=== PATIENT | male | born 1955 | race Caucasian/White ===

== ENCOUNTER 2021-07-21 09:34 | Observation (INO) ==
[2021-07-21] MEDS ORDERED: 0.9 % Sodium Chloride 500 ML IV ONE (10:43)
[2021-07-21 11:05] LABS: Basophils % 0.4 %; Eosinophils # 0.2 K/mcL (0.0-0.6); Hematocrit 45.1 % (37.5-50.1); Hemoglobin 14.7 g/dL (12.9-16.9); Immature Granulocytes % 0.2 % (0-4); Lymphocytes # 2.2 K/mcL (0.6-4.6); Lymphocytes % 24.4 %; Mean Corpuscular HGB Conc 32.6 g/dL (31.6-35.5); Mean Corpuscular Hemoglobin 29.2 pg (28.0-33.3); Mean Corpuscular Volume 89.7 fL (83.0-100.0); Mean Platelet Volume 10.4 fL (9.4-12.4); Monocytes # 0.7 K/mcL (0.0-1.3); Monocytes % 7.2 %; Neutrophils # 5.9 K/mcL (1.6-8.9); Platelet Count 287 K/mcL (140-400); Red Blood Count 5.03 M/mcL (4.19-5.50); Red Cell Distribution Width 13.2 % (11.5-14.5); Segmented Neutrophils % 65.8 %
[2021-07-21 11:16] LABS: BUN/Creatinine Ratio 23 (6-26); Blood Urea Nitrogen 22 mg/dL (8-23); Calcium 9.2 mg/dL (8.6-10.3); Carbon Dioxide 25 mEq/L (23-29); Chloride 105 mEq/L (98-107); Glucose 123 mg/dL (70-105); Magnesium 1.8 mg/dL (1.6-2.6); Osmolality,Calculated 291 (280-300); Potassium 3.9 mEq/L (3.5-5.1); Sodium 138 mEq/L (136-145); Troponin I < 0.03 ng/mL (< 0.04); eGFR For African Americans > 60 (> 60); eGFR For Non-African Americans > 60 (> 60)
[2021-07-21 11:29] LABS: Thyroid Stimulating Hormone 4.969 mcIU/mL (0.340-5.600)
[2021-07-21] MEDS ORDERED: *HR* Enoxaparin 40 MG/0.4 ML SYRINGE SQ ONE (12:31)
[2021-07-21] MEDS: DilTIAZem 50 MG/50 ML IV.SOLN IVC SCH ×3 (12:33→20:20)
[2021-07-21] MEDS ORDERED: Perflutren Lipid Microsphere 1.3 ML in 0.9 % Sodium Chloride 8.7 ML IVP PRN (13:08)
[2021-07-21] MEDS ORDERED: Ondansetron 4 MG/2 ML VIAL IVP PRN (13:09)
[2021-07-21] MEDS ORDERED: Naloxone 0.4 MG/ML INJ IVP PRN (13:09)
[2021-07-21] MEDS ORDERED: Acetaminophen 325 MG TABLET PO PRN (13:09)
[2021-07-21] MEDS: Apixaban 5 MG TABLET PO SCH (20:20)
[2021-07-21] MEDS: Metoprolol 100 MG TABLET PO SCH (20:20)
[2021-07-22 05:27] LABS: Basophils # 0.1 K/mcL (0.0-0.2); Basophils % 0.5 %; Eosinophils # 0.2 K/mcL (0.0-0.6); Eosinophils % 1.8 %; Hematocrit 41.3 % (37.5-50.1); Hemoglobin 13.2 g/dL (12.9-16.9); Immature Granulocytes % 0.4 % (0-4); Lymphocytes # 2.9 K/mcL (0.6-4.6); Lymphocytes % 27.7 %; Mean Corpuscular Hemoglobin 29.3 pg (28.0-33.3); Mean Corpuscular Volume 91.6 fL (83.0-100.0); Mean Platelet Volume 9.9 fL (9.4-12.4); Monocytes # 0.7 K/mcL (0.0-1.3); Monocytes % 7.1 %; Neutrophils # 6.5 K/mcL (1.6-8.9); Platelet Count 226 K/mcL (140-400); Red Blood Count 4.51 M/mcL (4.19-5.50); Red Cell Distribution Width 13.5 % (11.5-14.5); Segmented Neutrophils % 62.5 %; White Blood Count 10.3 K/mcL (4.3-11.1)
[2021-07-22 05:58] LABS: BUN/Creatinine Ratio 20 (6-26); Blood Urea Nitrogen 20 mg/dL (8-23); Calcium 8.9 mg/dL (8.6-10.3); Carbon Dioxide 28 mEq/L (23-29); Chloride 104 mEq/L (98-107); Glucose 106 mg/dL (70-105); Osmolality,Calculated 293 (280-300); Sodium 140 mEq/L (136-145); eGFR For African Americans > 60 (> 60); eGFR For Non-African Americans > 60 (> 60)
[2021-07-22] MEDS ORDERED: lisinopriL 20 MG TABLET PO SCH (09:00)
[2021-07-22] MEDS ORDERED: Aspirin 81 MG TAB.CHEW PO SCH (09:00)
[2021-07-22] MEDS ORDERED: Isosorbide MONOnitrate (24 HR) 30 MG TAB.ER.24H PO SCH (09:00)
[2021-07-22] MEDS: Metoprolol 100 MG TABLET PO SCH (09:46)
[2021-07-22] MEDS: Apixaban 5 MG TABLET PO SCH (09:46)
[2021-07-22 11:26] VITALS: BP 118/72; PULSE 62; TEMP 97.9; O2SAT 96
== END 2021-07-22 14:30 | disposition home or self-care (01) ==
LOC: 2ANU 09:34 → EMEROOARM 09:34 → SUATTDRO 12:53 → 2ANU 13:58
PROVIDERS: ADMIT Internal Medicine; ATTEND Internal Medicine